=== PATIENT | male | born 1950 | race Caucasian/White ===

== ENCOUNTER 2019-12-29 15:58 | Inpatient (IN) | payer MEDICARE ==
[~2019-12-29] VITALS: Ht 170.2 cm; Wt 92.7 kg
[~2019-12-29 15:58] MED LIST: ASPIR-LOW81 MG PO; ASPIRIN E.C. 8181 MG PO; B-12250 MCG PO; CEPHALEXIN500 M1 PO; COZAAR 25MG25 MG/TAB PO; COZAAR100 MG PO; EXFORGE 10/320 PO; FLONASEALLERGY NS; FOLIC ACID; FOLIC ACID800 MCG PO; FORTAMET500 MG PO; HCTZ; HCTZ 25MG TAB25 MG PO; LOPRESSOR 225 MG/TAB PO; MULTI VITAMINS1 TAB; NORVASC 10MG10 MG PO; NORVASC2.5 MG PO; PHARMASSURE SA160 MG PO; PRILOSEC 20MG20 MG PO; SAW PALMETTO160 MG PO; TOPROL XL50 MG PO
[2019-12-29 17:42] LABS: HEMATOCRIT 37.6 % (42.0-52.0); HEMOGLOBIN 13.3 g/dl (13.5-18.0); MEAN CELL VOLUME 90 fl (80.0-100.0); MEAN CORPUSCULAR HEMOGLOBIN 32 pg (27.0-31.0); MEAN CORPUSCULAR HGB CONC 35 g/dl (33.0-37.0); MEAN PLATELET VOLUME 10.1 fl (7.4-10.4); PLATELET COUNT 112 K/mm3 (130-400); RED BLOOD COUNT 4.18 M/mm3 (4.20-5.60); REDCELL DISTRIBUTION WIDTH-CV 12.4 % (11.5-14.5)
[2019-12-29 17:49] LABS: COLLECTION METHOD CLEAN CATCH
[2019-12-29 17:52] LABS: ALBUMIN 4.2 gm/dL (3.5-5.0); BILIRUBIN,TOTAL 1.3 mg/dL (0.0-1.0); CALCIUM 8.9 mg/dL (8.4-10.2); CREATININE, serum 0.72 (0.66-1.25); TOTAL PROTEIN 7.5 gm/dL (6.4-8.2)
[2019-12-29 17:55] LABS: MUCOUS Present /lpf; PH 6 (5-8); SQUAMOUS EPITHELIAL None Seen /hpf; URINE APPEARANCE Clear; URINE BACTERIA None Seen /hpf; URINE BILIRUBIN Negative (NEGATIVE); URINE BLOOD Negative (NEGATIVE); URINE COLOR Yellow; URINE GLUCOSE Negative (NEGATIVE); URINE KETONE 1+ (NEGATIVE); URINE LEUKOCYTE ESTERASE Negative (NEGATIVE); URINE NITRATE Negative (NEGATIVE); URINE PROTEIN(semi-quant) 2+ (NEGATIVE); URINE RBC 0-2 /hpf; URINE UROBILINOGEN Negative (NEGATIVE)
[2019-12-29 17:59] LABS: POTASSIUM 2.7 mmol/L (3.4-5.0)
[2019-12-29 18:02] LABS: BAND 25 % (0-10); LYMPHOCYTE 16 % (20.0-51.0); NEUTROPHILS 56 % (42.0-75.2); PLATELET ESTIMATE DECREASED (NORMAL)
[2019-12-29 18:18] LABS: C-REACTIVE PROTEIN 35.7 mg/dL (0.0-0.9)
--- NOTE | 2019-12-29 21:00 | NUR ---
Received patient via stretcher from ER. Patient is alert and oriented. He is independent. He is afebrile. He is independent in the room. He doesn't use walker or cane. With IV at right hand infusing NS 1000ml with 40 meqs KCL at 125ml/hr. Instructed patient on clear liquids diet. On room air. Patient already had a bowel movement. Specimen submitted to lab. Med rec and assesment done. Denies pain.
[2019-12-29 21:45] VITALS: BP 160/76; PULSE 86; TEMP 99.5
[2019-12-29 22:48] LABS: CLOSTRIDIUM DIFF A/B NEG
[2019-12-29 22:49] LABS: CLOSTRIDIUM DIFF A/B INTERP No C.diff present
[2019-12-30] VITALS (8 sets, daily range): BP systolic 132–158; BP diastolic 63–74; PULSE 60–92; TEMP 37.6
--- NOTE | 2019-12-30 01:50 | NUR ---
Patient is febrile, temp 102.2F. Tylenol PRN given. Denies pain.
[2019-12-30 07:25] LABS: ALBUMIN 3.6 gm/dL (3.5-5.0); BILIRUBIN,TOTAL 0.7 mg/dL (0.0-1.0); CALCIUM 8.2 mg/dL (8.4-10.2); CREATININE, serum 0.69 (0.66-1.25); MAGNESIUM 2.4 mg/dL (1.6-2.3); POTASSIUM 3.3 mmol/L (3.4-5.0); TOTAL PROTEIN 6.6 gm/dL (6.4-8.2)
[2019-12-30 07:28] LABS: MEAN CELL VOLUME 92 fl (80.0-100.0); MEAN CORPUSCULAR HEMOGLOBIN 32 pg (27.0-31.0); MEAN CORPUSCULAR HGB CONC 35 g/dl (33.0-37.0); MEAN PLATELET VOLUME 10.4 fl (7.4-10.4); PLATELET COUNT 104 K/mm3 (130-400); RED BLOOD COUNT 3.74 M/mm3 (4.20-5.60); REDCELL DISTRIBUTION WIDTH-CV 12.6 % (11.5-14.5)
[2019-12-30 07:40] LABS: HEMATOCRIT 34.5 % (42.0-52.0)
[2019-12-30 08:41] LABS: BAND 46 % (0-10); LYMPHOCYTE 22 % (20.0-51.0); NEUTROPHILS 29 % (42.0-75.2); PLATELET ESTIMATE DECREASED (NORMAL)
--- NOTE | 2019-12-30 15:50 | NUR ---
The patient is on COVID precautions and pending results. SW attempted to contact the patient to discuss discharge plan. The patient did not answer his room. SW then contacted the patient's , Emily (ph#[phone]), to complete intake. The patient lives in [place] with his . Emily reports that the patient is independent with ADLs and does not have any DME. She states that he is very active and walks a few miles every week. The patient's PCP is Dr. Patrick Valdez and he receives his medications at [facility]. Emily reports no difficulties obtaining his meds. The patient does not have advanced directives in EMR, but Emily reports that he does have them completed and that she is the patient's DPOA-HC. Emily does not have any concerns about the patient returning back home with her upon discharge. SW to continue to follow as needed.
--- NOTE | 2019-12-30 20:00 | NUR ---
Received report from ABHI Rosa. A/Ox4. Denies any pain, discomfort for SOB at this time. Meds administered. IV to RH intact with fluids infusing. Tele monitor in place. PT showered this evening. Able to make needs known. Needs met. Call light within reach.
[2019-12-31 04:34] VITALS: BP 144/72; PULSE 77; TEMP 98.3
--- NOTE | 2019-12-31 04:51 | NUR ---
Pt requested prn tylenol for general body aches. Administered 650mg tylenol as requested. call light within reach.
[2019-12-31 06:37] LABS: BASO % 0.7 % (0.0-2.0); EOS # 0.1 (0.0-0.7); EOS % 2.2 % (0-4.0); GRAN # 2.6 (1.4-6.5); GRAN % 58.3 % (42.2-75.2); HEMOGLOBIN 11.5 g/dl (13.5-18.0); LYMPH # 1.2 (1.2-3.4); LYMPH % 26.1 % (20.0-51.0); MEAN CELL VOLUME 91 fl (80.0-100.0); MEAN CORPUSCULAR HEMOGLOBIN 33 pg (27.0-31.0); MEAN CORPUSCULAR HGB CONC 36 g/dl (33.0-37.0); MEAN PLATELET VOLUME 9.6 fl (7.4-10.4); MONO # 0.5 (0.1-0.6); MONO % 11.8 % (1.7-9.3); PLATELET COUNT 89 K/mm3 (130-400); RED BLOOD COUNT 3.54 M/mm3 (4.20-5.60); REDCELL DISTRIBUTION WIDTH-CV 12.6 % (11.5-14.5)
[2019-12-31 06:42] LABS: HEMATOCRIT 32.3 % (42.0-52.0)
--- NOTE | 2019-12-31 06:56 | NUR ---
Report given to ABHI Ross.
[2019-12-31 07:00] LABS: CALCIUM 8.2 mg/dL (8.4-10.2); CREATININE, serum 0.56 (0.66-1.25); POTASSIUM 3.1 mmol/L (3.4-5.0)
[2019-12-31 08:41] VITALS: BP 143/81; PULSE 77; TEMP 97.8
--- NOTE | 2019-12-31 08:57 | NUR ---
Patient is alert and oriented. denies pain. complain of loose stool. COVID19 result came back negative. patient will be placed on contact precaution due to loose stool. moved from rm4 to 10
[2019-12-31 11:45] VITALS: BP 143/64; PULSE 67; TEMP 97.9
[2019-12-31 16:25] VITALS: BP 139/60; PULSE 78; TEMP 98.6
[2019-12-31 19:46] VITALS: BP 169/63; PULSE 70; TEMP 98.1
--- NOTE | 2019-12-31 20:30 | NUR ---
Initial shift assessment done- denies pain, states still having diarrhea but the last time it was not as watery-- Tele on, IV of NS at 75cc/hr-- did have a couple grahmn crackers for snack tonight-- denies nausea. Up on own to BR- steady on feet
[2020-01-01 00:23] VITALS: BP 157/66; PULSE 70; TEMP 98.3
[2020-01-01 03:55] VITALS: BP 150/78; PULSE 71
[2020-01-01 06:45] LABS: HEMOGLOBIN 11.7 g/dl (13.5-18.0); MEAN CELL VOLUME 92 fl (80.0-100.0); MEAN CORPUSCULAR HEMOGLOBIN 32 pg (27.0-31.0); MEAN CORPUSCULAR HGB CONC 35 g/dl (33.0-37.0); MEAN PLATELET VOLUME 10.1 fl (7.4-10.4); PLATELET COUNT 109 K/mm3 (130-400); RED BLOOD COUNT 3.63 M/mm3 (4.20-5.60); REDCELL DISTRIBUTION WIDTH-CV 12.7 % (11.5-14.5)
--- NOTE | 2020-01-01 06:45 | NUR ---
Quiet night- afebrile, VSS, Tylenol given x1 for shoulder pain, pt did not have any stools at all during this shift- Hopes to go home today
[2020-01-01 06:47] LABS: HEMATOCRIT 33.3 % (42.0-52.0)
[2020-01-01 06:53] LABS: CALCIUM 8.2 mg/dL (8.4-10.2); CREATININE, serum 0.55 (0.66-1.25); POTASSIUM 3.6 mmol/L (3.4-5.0)
[2020-01-01 07:26] VITALS: BP 151/68; PULSE 72; TEMP 98.1
[2020-01-01] MEDS ORDERED: CIPRO 500MG TA500 MG PO (09:13)
[2020-01-01 09:55] LABS: BAND 9 % (0-10); LYMPHOCYTE 35 % (20.0-51.0); NEUTROPHILS 52 % (42.0-75.2); PLATELET ESTIMATE NORMAL (NORMAL)
[2020-01-01 10:55] VITALS: BP 147/77
[2020-01-01 11:47] VITALS: BP 141/54; PULSE 63; TEMP 98
--- NOTE | 2020-01-01 14:38 | NUR ---
Patient is alert and oriented. IV discontinued. Patient was discharged with new medication: Ciprofloxacin, patient was advised to follow up PCP in 1 week. patient went home with spouse Emily.
== END 2020-01-01 12:30 | disposition home or self-care (01) | DRG 872 ==
LOC: COL.ER 15:58 → PEDS 18:54 → MEDICAL 12-31 09:45
PROVIDERS: Emergency Medicine; Physician Assistant; ADMIT Student in an Organized Health Care Education/Training Program
DX: A41.9 Sepsis, unspecified organism (principal); E87.1 Hypo-osmolality and hyponatremia; A04.5 Campylobacter enteritis; E87.6 Hypokalemia; J30.2 Other seasonal allergic rhinitis; R91.1 Solitary pulmonary nodule; E11.9 Type 2 diabetes mellitus without complications; E86.0 Dehydration; Z20.828 Contact with and (suspected) exposure to other viral communicable diseases; E87.8 Other disorders of electrolyte and fluid balance, not elsewhere classified; Z79.84 Long term (current) use of oral hypoglycemic drugs; Z79.82 Long term (current) use of aspirin
CPT/HCPCS: 99222-AI; 99231-AI; 99232-AI; 99239; J0696; J1650; J2405; J3475; J3480; J7030; Q9967

== ENCOUNTER 2024-01-12 07:41 | Day surgery (SDC) | payer MEDICARE ==
[~2024-01-12] VITALS: Ht 170.2 cm; Wt 86.8 kg
[~2024-01-12 07:41] MED LIST changes: +CIPRO 500MG TA500 MG PO; +LR 1,000 ML IV SCH; +Ondansetron 4 MG/2 ML VIAL IV PRN
[2024-01-12] MEDS ORDERED: CELEBREX 1100 MG/CAP PO (08:04)
[2024-01-12 08:51] VITALS: BP 179/71; PULSE 52; TEMP 96.9
[2024-01-12] MEDS ORDERED: Lidocaine PF 2% (20 MG/ML) 5 ML VIAL ONE (09:16)
[2024-01-12 10:10] VITALS: BP 148/72; PULSE 53; TEMP 98.1
[2024-01-12 10:30] VITALS: BP 164/69; PULSE 47
[2024-01-12 10:45] VITALS: BP 166/66; PULSE 48
--- NOTE | 2024-01-12 15:10 | NUR ---
1010 PATIENT RETURNS TO [facility] [place] [facility]ART. PT AWAKE AND ALERT. RESPIRATIONS UNLABORED. AMBULATED TO RECLINER CHAIR WITH 2:1 SBA. PT DENIES NAUSEA OR ABDOMINAL PAIN. HOOKED UP TO MONITOR AND VS OBTAINED. CALL LIGHT AT SIDE AND PRESENT. 1015 PATIENT TOLERATING COFFEE AND MUFFIN WITHOUT NAUSEA OR DIFFICULTY SWALLOWING (EGD ONLY). 1025 IN ROOM SPEAKING WITH PATIENT. 1040 D/C INSTRUCTIONS REVIEWED WITH PATIENT. PT VERBALIZED UNDERSTANDING AND A COPY OF INSTRUCTIONS PROVIDED IN D/C FOLDER. 1050 PATIENT DRESSES SELF. 1100 PATIENT DISCHARGED FROM UNIT VIA W/C TO A PERSONAL VEHICLE. PT LEFT HOSPITAL IN STABLE CONDITION.
== END 2024-01-12 11:00 | disposition home or self-care (01) ==
LOC: SDCO 07:41
DX: Z12.11 Encounter for screening for malignant neoplasm of colon (principal); K64.0 First degree hemorrhoids; K31.7 Polyp of stomach and duodenum; K29.31 Chronic superficial gastritis with bleeding; K44.9 Diaphragmatic hernia without obstruction or gangrene; D3A.010 Benign carcinoid tumor of the duodenum; K21.00 Gastro-esophageal reflux disease with esophagitis, without bleeding; Z86.010 Personal history of colon polyps
CPT/HCPCS: 43239; G0105; J2704